=== PATIENT | male | born 1970 | race Caucasian/White ===

== ENCOUNTER 2017-08-24 09:42 | Emergency (ER) | payer SELFPAY ==
[~2017-08-24] VITALS: Ht 180.3 cm; Wt 112.0 kg
[2017-08-24] MEDS ORDERED: IBUPROFEN 400MG TABLET PO ONE (17:45)
[2017-08-24] MEDS ORDERED: CLONIDINE 0.1MG TABLET PO ONE ×2 (17:45→20:15)
[2017-08-24 18:11] LABS: BASOPHILS % 0.5 % (0.0-2.0); EOSINOPHILS % 1.2 % (0.0-5.0); HEMATOCRIT. 42.7 % (42.0-52.0); HEMOGLOBIN. 14.6 g/dL (14.0-18.0); LYMPHOCYTES % 15.2 % (20.0-50.0); MEAN CORPUSCULAR HEMOGLOBIN 29.6 pg (28.0-32.0); MEAN CORPUSCULAR VOLUME 86.8 fL (80.0-94.0); MONOCYTES % 4.8 % (2.0-8.0); NEUTROPHILS % 78.3 % (40.0-76.0); PLATELET 289 x1000/uL (130-400); RED BLOOD CELL COUNT 4.93 mill/uL (4.7-6.1); RED CELL DISTRIBUTION WIDTH 13.2 % (11.6-14.6)
[2017-08-24 18:17] LABS: PARTIAL THROMBOPLASTIN TIME 25.9 sec (23.4-31.0); PROTHROMBIN TIME 10.6 sec (9.4-11.6)
[2017-08-24 18:24] LABS: CARBON DIOXIDE 32 mEq/L (21-32); CHLORIDE 103 mEq/L (98-107)
[2017-08-24 18:25] LABS: TROPONIN I < 0.02 ng/mL (0.00-0.04)
[2017-08-24 21:40] VITALS: BP 169/73
== END 2017-08-24 21:40 | disposition home or self-care (01) ==
LOC: ER 10:54
DX: I10 Essential (primary) hypertension (principal); R51 Headache
CPT/HCPCS: 36415; 70450; 71045; 80053; 84484; 85025; 85610; 85730; 93005; 99285; Z7610